=== PATIENT | male | born 1970 | race Caucasian/White ===

== ENCOUNTER 2024-08-08 06:52 | Emergency (ER) | payer OTHER, SELFPAY ==
--- NOTE | ~2024-08-08 | XR_ITS ---
EXAMINATION: XR CHEST CLINICAL INFORMATION: Shortness of breath fever COMPARISON: None available. TECHNIQUE: Frontal view of the chest was obtained. FINDINGS: No significant abnormality is noted involving the heart, lungs, mediastinum, bony thorax or soft tissues. XR/XR chest 1V IMPRESSION: Unremarkable examination. Electronically signed by: Erlin Washburn MD 08/08/2024 08:01 AM EDT
--- NOTE | ~2024-08-08 | CT_ITS ---
EXAMINATION: CT ANGIOGRAM CHEST CLINICAL INFORMATION: Chest pain. Shortness of breath. Hypoxia. COMPARISON: Chest x-ray of 08/08/2024 TECHNIQUE: Multiple axial images were obtained through the chest after the administration of 70 mL of Omnipaque 350 intravenous contrast. Extensive vascular post-processing including two-dimensional and three-dimensional reformatted images were created and reviewed on an independent workstation. This CT examination was performed using dose optimization techniques as appropriate, variously including the following: *Automated exposure control *Adjustment of mA and/or kV according to patient size (this includes techniques or standardized protocols for targeted exams where dose is matched to indication/reason for exam; i.e. extremities or head) *Use of iterative reconstruction technique DLP: 378 mGy-cm FINDINGS: Mild respiratory motion artifacts are present. There is optimal opacification of the pulmonary arterial tree. No evidence of filling defects in the central, lobar and segmental branches of the pulmonary arteries. Evaluation in the subsegmental branches is somewhat limited due to respiratory motion artifacts. Minimal coronary calcifications are noted. The aorta is normal in caliber. An ascending aorta measures 3.8 cm in maximum AP diameter at the level of right main pulmonary artery. The cardiac size is normal. There is no evidence of contrast reflux into the hepatic veins to suggest elevated right heart pressures. No evidence of a interventricular septal deviation. No pericardial effusion. Trachea and central bronchi are well-aerated. No focal nodule is noted in the visualized thyroid gland. No evidence of pathologically enlarged mediastinal or hilar adenopathy. No evidence of axillary or internal mammary chain adenopathy. Visualized chest wall soft tissues are unremarkable. Evaluation of the lung parenchyma is somewhat limited due to respiratory motion artifacts however no significant pulmonary nodular masses are seen. There are mild diffuse changes of bronchiectasis, greater in the lower lobes. There is asymmetrical mild to moderate elevation of the right hemidiaphragm. Streaky and groundglass changes noted at the right lung base are nonspecific however hypoventilatory changes/atelectasis are favored over inflammatory or infectious process. Diffuse low-attenuation of the hepatic parenchyma is noted in the imaged upper abdomen consistent with hepatic steatosis. No focal nodule is noted in the visualized adrenal glands. No evidence of acute or suspicious osseous lesions. Multilevel mild degenerative changes are noted in the mid and lower thoracic spine. CT/CT angio chest PE protocol IMPRESSION: 1. No evidence of acute pulmonary embolism. 2. Mild diffuse changes of bronchiectasis, greater in the lower lobes. 3. Asymmetrical mild to moderate elevation of the right hemidiaphragm. Streaky and groundglass changes at the right lung base are nonspecific however hypoventilatory changes/atelectasis are favored over inflammatory or infectious process. 4. Hepatic steatosis. Fleischner guidelines were followed. VTE: Negative Electronically signed by: Rajendra Santamaria MD 08/08/2024 09:53 AM EDT RP
[2024-08-08 06:54] VITALS: BP 154/84; PULSE 64; RESP 21; TEMP 36.6; O2SAT 100; BMI 39.5
--- NOTE | 2024-08-08 06:57 | ED.SOB ---
HPI - SOB/Dyspnea General Chief Complaint: Chest Pain Stated Complaint: Chest Pains Time Seen by Provider: 08/08/24 06:57 Source: patient Mode of arrival: wheelchair Limitations: no limitations History of Present Illness ED Provider: Dr. Favian Rawls HPI Narrative: 54-year-old male who presents emergency department for evaluation of chest pain shortness of breath, fever, chills, cough. Patient's dropped him off at the main entrance and rapid response was called. The patient was brought to the emergency department in a wheelchair and brought immediately to a treatment room. The patient states that he has been feeling sick for 1-2 days. He has had fever, chills, fatigue and cough. He states over the last 6 hours he has been vomiting in his not been able to hold down any fluid. He states over last 2 hours he developed pleuritic chest pain and shortness of breath. He points to the anterior aspect of his chest when he was asked to localize the pain. The pain is a constant, pain which is worse with breathing and movement. He denied radiation of the pain to his neck, jaw, arms or back. This is 1st episode of this type of pain. Related Data Previous Rx's ?Medication ?Instructions ?Recorded amoxicillin 500 mg capsule 1,000 mg (2 x 500 mg) PO TID 5 08/08/24 days #30 caps doxycycline hyclate 100 mg tablet 100 mg PO Q12H 5 days #10 tabs 08/08/24 ondansetron 4 mg disintegrating 4 mg PO Q6-8H PRN nausea and 08/08/24 tablet vomiting #14 tabs Allergies Allergy/AdvReac Type Severity Reaction Status Date / Time No Known Allergies Allergy Verified 08/08/24 06:56 Review of Systems Review of Systems: Yes all other systems are reviewed and are negative [facility] Past Medical History [facility] Narrative: Social history: He denies tobacco use. He drinks 1 6 pack of beer per week. He denies drug use. Social History Social History Alcohol intake: current Alcohol intake frequency: a few times a week Smoked in Last 30 Days: No Use of substances other than those prescribed or required for medical reasons: No Advance Directives: No Advance Directives Information Provided: No Do you have a plan to hurt others: No Plan Physical Exam Vital Signs: Vital Signs: Last Vital Signs Temp 97.8 F 08/08/24 12:04 Pulse 96 08/08/24 12:04 Resp 20 08/08/24 12:04 BP 114/65 08/08/24 12:04 Pulse Ox 96 08/08/24 12:04 O2 Del Method Room Air 08/08/24 12:04 O2 Flow Rate 2 08/08/24 09:24 BMI result Body Mass Index 39.5 Exam: General: Awake, appears to be in distress secondary to his dyspnea and his chest pain, also appears to be very anxious, is able to answer all questions in full sentences Head: Normocephalic, atraumatic EENT: PERRL, Lids normal, sclera normal, conjunctiva normal, nose normal , ears normal, throat without erythema or exudates Neck: Supple, no adenopathy Lung: breath sounds symmetric, no wheezing, rales or rhonchi Chest: symmetric movement, nontender Heart: Regular rate rhythm with a normal S1 and S2, no murmurs Abdomen: soft, non-tender, nondistended, normal bowel sounds Back: no vertebral tenderness, no CVAT Extremities: no deformities, moves all extremities symmetrically Neuro: Awake, alert, oriented, normal speech, cranial nerves intact, moves all extremities symmetrically Psych: Pleasant, cooperative Medications Administered Discontinued Medications Generic Name Dose Route Start Last Admin Trade Name Freq PRN Reason Stop Dose Admin Amoxicillin 1,000 mg 08/08/24 11:41 08/08/24 11:53 Amoxicillin 500 Mg Capsule PO 08/08/24 11:42 1,000 mg ONCE ONE Administration Diphenhydramine HCl 50 mg 08/08/24 07:39 08/08/24 07:46 Diphenhydramine Hcl 50 Mg/Ml Vial IVPUSH 08/08/24 07:40 50 mg ONCE STA Administration Doxycycline Monohydrate 100 mg 08/08/24 11:41 08/08/24 11:53 Doxycycline Monohydrate 100 Mg Capsule PO 08/08/24 11:42 100 mg ONCE ONE Administration Sodium Chloride 1,000 mls @ 999 mls/hr 08/08/24 06:58 08/08/24 08:19 Ns IV 08/08/24 07:58 Infused .Q1H1M STA Infusion Iohexol 100 ml 08/08/24 08:36 08/08/24 08:36 Iohexol 350 Mg/Ml 100 Ml Infus..Btl IV 08/08/24 08:37 70 ml ONCE ONE Administration Ketorolac Tromethamine 15 mg 08/08/24 06:58 08/08/24 07:15 Ketorolac Tromethamine 15 Mg/Ml Vial IVPUSH 08/08/24 06:59 15 mg ONCE STA Administration Lorazepam 1 mg 08/08/24 06:58 08/08/24 07:15 Lorazepam 2 Mg/Ml Vial IVPUSH 08/08/24 06:59 1 mg STAT STA Administration Metoclopramide HCl 10 mg 08/08/24 07:39 08/08/24 07:46 Metoclopramide Hcl 10 Mg/2 Ml Vial IVPUSH 08/08/24 07:40 10 mg ONCE STA Administration Morphine Sulfate 4 mg 08/08/24 08:14 08/08/24 09:25 Morphine Sulfate 4 Mg/Ml Cartridge IVPUSH 08/08/24 08:15 4 mg ONCE STA Administration Protocol Medical Decision Making Medical Decision Making MDM Narrative: 54-year-old male who presents emergency department for evaluation of chest pain shortness of breath, fever, chills, cough. She states that the fever, chills, cough and fatigue have been present for 2 days. He developed nausea and vomiting 6 hours prior to arrival and pleuritic chest pain 2 hours prior to arrival. On presentation the patient is dyspneic and appears anxious, he was able to answer all questions in full sentences. Patient did a. Tachypneic and anxious, lung exam was unremarkable and heart exam was unremarkable. Differential diagnosis: ?Includes but is not limited to pneumonia, bronchitis, viral illness, myocardial infarction, myocardial ischemia, pulmonary edema, anemia, electrolyte abnormalities Following evaluation was ordered: CBC, CMP, lipase, troponin, BNP, PTT, chest x-ray one view, nursing program coordinator, O2 saturation monitoring, IV insert Patient was initially treated with the following: Course: 00:08 My interpretation patient's laboratory evaluation as follows: WBC elevated 17,400 with 82 neutrophils. AST elevated 51. Glucose elevated 185. D-dimer elevated 269. High sensitive troponin I was below detectable limits. BNP was normal. Patient's chest x-ray revealed no acute disease.Patient's 12 EKG was unremarkable. 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 Patient did have an elevated D-dimer therefore I ordered CT pulmonary angiogram PE study. Lab Data MDM Lab Attestation statement: I reviewed the patient's lab results. 08/08/24 06:55 08/08/24 06:55 Labs: Lab Results 08/08/24 08/08/24 08/08/24 Range/Units 06:55 06:55 07:00 WBC 17.4 H (4.8-10.8) X10*3/uL RBC 4.89 (4.60-5.80) X10*6/uL Hgb 14.6 (14.0-18.0) g/dl Hct 40.5 L (42.0-52.0) % MCV 82.8 (80.0-98.0) fL MCH 29.9 (27.0-33.0) pg MCHC 36.0 (31.0-36.0) g/dl RDW 11.7 (11.0-16.0) % Plt Count 258 (160-400) X10*3/uL MPV 9.8 (9.4-12.4) fL Immature Gran % (Auto) 0.7 H (0.0-0.4) % Neut % (Auto) 86.8 H (45-73) % Lymph % (Auto) 6.4 L (20-40) % [place] % (Auto) 4.9 (2-11) % Eos % (Auto) 0.7 (0-4) % Baso % (Auto) 0.5 (0-2) % Lymph # (Auto) 1.1 L (1.2-4.9) X10*3/uL [place] # (Auto) 0.9 (0.1-1.2) X10*3/uL Eos # (Auto) 0.1 (0.0-0.4) X10*3/uL Baso # (Auto) 0.1 (0.0-0.2) X10*3/uL Abs Immat Gran (auto) 0.12 H (0.00-0.03) X10*3/uL Absolute Neuts (auto) 15.1 H (2.0-8.3) x10*3/uL Absolute Nucleated RBC 0.000 (0.0-0.012) X10*3/uL Nucleated RBC % (auto) 0.0 (0.0-0.2) /100WBC APTT 26.5 (26.0-36.8) SEC D-Dimer High Sensitivty 269 NG/ML Sodium 139 (135-145) mmol/L Potassium 3.5 (3.3-5.1) mmol/L Chloride 100 (96-108) mmol/L Carbon Dioxide 23 (22-29) mmol/L Anion Gap 20 (12-20) BUN 13 (9-16) mg/dL Creatinine 0.95 (0.5-1.4) mg/dL Estim Creat Clear Calc 102.8 Estimated GFR > 60 POC Glucose 185 H (60-115) mg/dL Random Glucose 219 H (60-115) mg/dL Calcium 10.0 (8.4-10.2) mg/dL Total Bilirubin 1.0 (0.0-1.0) mg/dL AST 30 (5-37) U/L ALT 51 H (0-40) U/L Alkaline Phosphatase 111 (39-117) U/L Troponin I High Sens < 2.7 (<3.5-35.0) ng/L B-Natriuretic Peptide 13 (<100) pg/mL Total Protein 8.6 H (6.5-8.0) g/dL Albumin 4.6 (3.5-5.0) g/dL Lipase 32 (8-78) U/L Hold Yellow Top See Note See Note Influenza Type A (PCR) (Negative) Influenza Type B (PCR) (Negative) RSV RNA Qual (PCR) (Negative) SARS-CoV-2 RNA (RT-PCR) (Negative) 08/08/24 Range/Units 07:32 WBC (4.8-10.8) X10*3/uL RBC (4.60-5.80) X10*6/uL Hgb (14.0-18.0) g/dl Hct (42.0-52.0) % MCV (80.0-98.0) fL MCH (27.0-33.0) pg MCHC (31.0-36.0) g/dl RDW (11.0-16.0) % Plt Count (160-400) X10*3/uL MPV (9.4-12.4) fL Immature Gran % (Auto) (0.0-0.4) % Neut % (Auto) (45-73) % Lymph % (Auto) (20-40) % [place] % (Auto) (2-11) % Eos % (Auto) (0-4) % Baso % (Auto) (0-2) % Lymph # (Auto) (1.2-4.9) X10*3/uL [place] # (Auto) (0.1-1.2) X10*3/uL Eos # (Auto) (0.0-0.4) X10*3/uL Baso # (Auto) (0.0-0.2) X10*3/uL Abs Immat Gran (auto) (0.00-0.03) X10*3/uL Absolute Neuts (auto) (2.0-8.3) x10*3/uL Absolute Nucleated RBC (0.0-0.012) X10*3/uL Nucleated RBC % (auto) (0.0-0.2) /100WBC APTT (26.0-36.8) SEC D-Dimer High Sensitivty NG/ML Sodium (135-145) mmol/L Potassium (3.3-5.1) mmol/L Chloride (96-108) mmol/L Carbon Dioxide (22-29) mmol/L Anion Gap (12-20) BUN (9-16) mg/dL Creatinine (0.5-1.4) mg/dL Estim Creat Clear Calc Estimated GFR POC Glucose (60-115) mg/dL Random Glucose (60-115) mg/dL Calcium (8.4-10.2) mg/dL Total Bilirubin (0.0-1.0) mg/dL AST (5-37) U/L ALT (0-40) U/L Alkaline Phosphatase (39-117) U/L Troponin I High Sens (<3.5-35.0) ng/L B-Natriuretic Peptide (<100) pg/mL Total Protein (6.5-8.0) g/dL Albumin (3.5-5.0) g/dL Lipase (8-78) U/L Hold Yellow Top Influenza Type A (PCR) NEGATIVE (Negative) Influenza Type B (PCR) NEGATIVE (Negative) RSV RNA Qual (PCR) NEGATIVE (Negative) SARS-CoV-2 RNA (RT-PCR) NEGATIVE (Negative) Independent Interpretation I performed an independent interpretation of an: EKG Interpretation: My independent interpretation the patient's 12 EKG done at 06:46 hours is as follows: Normal sinus rhythm rate of 65, normal [place] interval, QRS duration QTC interval, no ST segment elevation, no ST segment depression, no PACs, no PVCs My interpretation patient's one-view chest x-ray is as follows: No acute disease Radiology Impression Discussion of test interpretation with radiology: I have reviewed the radiologist's reading. Radiologist Impression: XR chest 1V IMPRESSION: Unremarkable examination. Electronically signed by: Erlin Washburn MD 08/08/2024 08:[address] angio chest PE protocol IMPRESSION: 1. No evidence of acute pulmonary embolism. 2. Mild diffuse changes of bronchiectasis, greater in the lower lobes. 3. Asymmetrical mild to moderate elevation of the right hemidiaphragm. Streaky and groundglass changes at the right lung base are nonspecific however hypoventilatory changes/atelectasis are favored over inflammatory or infectious process. 4. Hepatic steatosis. Fleischner guidelines were followed. VTE: Negative Dictated By: Rajendra Santamaria MD Critical Care Time Critical Care Time Critical Care Time: Yes Total Critical Care Time: 45 Attestation: Critical Care: The patient was critically ill with a high probability of imminent or life threatening deterioration. I spent greater than 30 minutes of discontinuous time evaluating the patient,delivering critical care at the bedside, discussing and evaluating pertinent data with consultants. Critical care time does not include time spent performing separately billable procedures or teaching. Total time spent performing critical care was 45 minutes. Discharge Plan Discharge Clinical Impression: Pneumonia, Pleuritic chest pain Patient Disposition: Home, Self-Care Instructions: Community Acquired Pneumonia (ED) Additional Instructions: Your blood work did reveal an elevated white blood cell count otherwise was unremarkable The CT scan of your chest did not reveal any blood clots in your lungs which is reassuring. You may have pneumonia on the CT scan that was not seen on the chest x-ray. Take amoxicillin 500 mg pills, 2 pills, every 6 hours (3 times a day) for 5 days. Take doxycycline 100 mg, 1 pill every 12 hours for 5 days Take Zofran ODT 4 mg pills, 1 pill dissolved in your mouth every 8 hours as needed for nausea and vomiting. Take ibuprofen 200 mg pills, 2 pills every 6 hours as needed for pain or fever. Take Tylenol (acetaminophen) 500 mg pills, 2 pills every 6 hours as needed for pain or fever. Follow-up with your doctor in 2 days. Please return to the emergency department if your symptoms get worse or if you develop any symptoms that are concerning to you. Prescriptions: New amoxicillin 500 mg capsule 1,000 mg PO TID 5 Days Qty: 30 0RF ondansetron 4 mg tablet,disintegrating 4 mg PO Q6-8H PRN (Reason: nausea and vomiting) Qty: 14 0RF doxycycline hyclate 100 mg tablet 100 mg PO Q12H 5 Days Qty: 10 0RF Interventions: ED Discharge Assessment Last Done: 08/08/24 12:04 Discharge Date/Time: 08/08/24 12:05 Print Language: Azeri
--- NOTE | 2024-08-08 06:59 | ECG_ITS ---
Test Reason : chest pain Blood Pressure : / mmHG Vent. Rate : 065 BPM Atrial Rate : 065 BPM P-R Int : 160 ms QRS Dur : 092 ms QT Int : 416 ms P-R-T Axes : 024 -63 025 degrees QTc Int : 432 ms Sinus rhythm with marked sinus arrhythmia Left axis deviation Abnormal ECG When compared with ECG of 06-SEP-2005 01:59, QRS axis Shifted left Heart rate has decreased Referred By: Favian Rawls Electronically Signed By:ELIJAH SONG
--- NOTE | 2024-08-08 07:00 | MHC.EDTECH ---
EKG completed at 0646 given and signed off by
[2024-08-08 07:04] LABS: Glucose, Whole Blood 185 mg/dL (60-115)
[2024-08-08 07:08] LABS: Basophils Absolute Auto 0.1 X10*3/uL (0.0-0.2); Basophils Percent Auto 0.5 % (0-2); Eosinophils Absolute Auto 0.1 X10*3/uL (0.0-0.4); Eosinophils Percent Auto 0.7 % (0-4); Hematocrit 40.5 % (42.0-52.0); Hemoglobin 14.6 g/dl (14.0-18.0); Imm Gran Abs Auto 0.12 X10*3/uL (0.00-0.03); Imm Gran Pct Auto 0.7 % (0.0-0.4); Lymphocytes Absolute Auto 1.1 X10*3/uL (1.2-4.9); Lymphocytes Percent Auto 6.4 % (20-40); MANUAL DIFF FLAG NO; Mean Corpuscular Hemoglobin 29.9 pg (27.0-33.0); Mean Corpuscular Volume 82.8 fL (80.0-98.0); Mean Platelet Volume 9.8 fL (9.4-12.4); Monocytes Absolute Auto 0.9 X10*3/uL (0.1-1.2); Monocytes Percent Auto 4.9 % (2-11); Neutrophils Absolute Auto 15.1 x10*3/uL (2.0-8.3); Neutrophils Percent Auto 86.8 % (45-73); Platelet Count 258 X10*3/uL (160-400); Red Blood Count 4.89 X10*6/uL (4.60-5.80); Red Cell Distribution Width 11.7 % (11.0-16.0); White Blood Count 17.4 X10*3/uL (4.8-10.8)
[2024-08-08 07:13] LABS: D Dimer High Sensitivity 269 NG/ML
[2024-08-08] MEDS: 0.9 % Sodium Chloride 1,000 ML 999 ML IV (07:14)
[2024-08-08] MEDS: LORazepam 2 MG/ML VIAL 1 MG IVPUSH (07:15)
[2024-08-08] MEDS: Ketorolac Tromethamine 15 MG/ML VIAL IVPUSH (07:15)
[2024-08-08 07:21] VITALS: BP 147/90; PULSE 65; RESP 20; O2SAT 100
[2024-08-08 07:22] LABS: Alanine Aminotransferase 51 U/L (0-40); Albumin Level 4.6 g/dL (3.5-5.0); Alkaline Phosphatase 111 U/L (39-117); Anion Gap 20 (12-20); Aspartate Amino Transferase 30 U/L (5-37); Blood Urea Nitrogen 13 mg/dL (9-16); Carbon Dioxide 23 mmol/L (22-29); Chloride 100 mmol/L (96-108); Creatinine Clr Calc Pharmacy 102.8; Estimated Glomerular Filt Rate > 60; Glucose Random 219 mg/dL (60-115); Lipase 32 U/L (8-78); Potassium 3.5 mmol/L (3.3-5.1); Sodium 139 mmol/L (135-145); Total Protein 8.6 g/dL (6.5-8.0)
[2024-08-08 07:27] LABS: Partial Thromboplastin Time 26.5 SEC (26.0-36.8)
[2024-08-08 07:29] LABS: B Type Natriuretic Peptide 13 pg/mL (<100)
[2024-08-08 07:30] LABS: Troponin-I High Sensitivity < 2.7 ng/L (<3.5-35.0)
[2024-08-08] MEDS: diphenhydrAMINE HCL 50 MG/ML VIAL IVPUSH (07:46)
[2024-08-08] MEDS: Metoclopramide HCl 10 MG/2 ML VIAL IVPUSH (07:46)
--- NOTE | 2024-08-08 07:57 | PC.NURSE ---
pt desat to 79 - o2 came up to 86% and maintained - placed pt on 2L NC, notified MD Rawls of desat. plan to order PE study
[2024-08-08] MEDS: iohexoL 350 MG/ML 100 ML INFUS..BTL IV (08:36)
[2024-08-08 09:14] LABS: Influenza A PCR NEGATIVE (Negative); Influenza B PCR NEGATIVE (Negative); Resp Syncy Virus RNA Qual PCR NEGATIVE (Negative); SARS COV2 PCR INHOUSE NEGATIVE (Negative)
[2024-08-08 09:24] VITALS: PULSE 85; RESP 16; O2SAT 97
[2024-08-08] MEDS: Morphine Sulfate 4 MG/ML CARTRIDGE IVPUSH (09:25)
[2024-08-08 11:40] VITALS: BP 114/65; PULSE 96; RESP 20; O2SAT 96
[2024-08-08] MEDS: Amoxicillin 500 MG CAPSULE 1000 MG PO (11:53)
[2024-08-08] MEDS: Doxycycline Monohydrate 100 MG CAPSULE PO (11:53)
[2024-08-08 12:04] VITALS: BP 114/65; PULSE 96; RESP 20; TEMP 36.6; O2SAT 96
== END 2024-08-08 12:05 | disposition home or self-care (01) ==
PROVIDERS: Emergency Provider Emergency Medicine Emergency Medical Services
DX: J18.9 Pneumonia, unspecified organism (principal); R07.89 Other chest pain; R06.02 Shortness of breath; I49.8 Other specified cardiac arrhythmias; Z03.818 Encounter for observation for suspected exposure to other biological agents ruled out; Z79.899 Other long term (current) drug therapy
CPT/HCPCS: 0241U; 36415; 71045; 71275; 80053; 82947; 83690; 83880; 84484; 85025; 85379; 85730; 93005; 96361; 96374; 96375; 99284; 99285; J1200; J1885; J2060; J2270; J2765; Q9967